=== PATIENT | male | born 1990 | race African-American/Black ===

== ENCOUNTER 2021-07-17 02:11 | Emergency (ER) | payer SELFPAY | END 2021-07-17 02:44 | disposition home or self-care (01) | LOC: CSHERS 02:11 | DX: L02.01 Cutaneous abscess of face (principal) | CPT/HCPCS: 99282 ==

== ENCOUNTER 2021-09-01 22:06 | Emergency (ER) | payer SELFPAY | END 2021-09-01 22:38 | disposition left against medical advice (07) | LOC: CSHERS 22:06 | DX: J06.9 Acute upper respiratory infection, unspecified (principal) | CPT/HCPCS: 99283 ==